=== PATIENT | female | born 1990 | race Caucasian/White ===

== ENCOUNTER 2017-02-08 06:03 | Inpatient (IN) | payer BC, OTHER ==
[2017-02-06 10:46] LABS: ABSOLUTE EOSINOPHILS # (AUTO) 0.2 10^3/uL (0.0-0.6); ABSOLUTE LYMPHOCYTES (AUTO) 1.6 10^3/uL (0.5-4.7); ABSOLUTE MONOCYTES (AUTO) 0.6 10^3/uL (0.1-1.4); ABSOLUTE NEUT (AUTO) 9.3 10^3/uL (1.7-8.2); BASOPHILS % (AUTO) 0.2 % (0-2); EOSINOPHILS % (AUTO) 1.7 % (0-6); HEMATOCRIT 30.4 % (36.0-47.0); HEMOGLOBIN 9.5 g/dL (12.0-15.5); HGB HCT DIFFERENCE -1.9; LYMPHOCYTES % (AUTO) 13.9 % (13-45); MEAN CORPUSCULAR HEMOGLOBIN 22.2 pg (27.0-33.4); MEAN CORPUSCULAR HGB CONC 31.1 g/dL (32.0-36.0); MEAN CORPUSCULAR VOLUME 71 fl (80-97); MONOCYTES % (AUTO) 4.9 % (3-13); RED BLOOD COUNT 4.25 10^6/uL (3.72-5.28); RED CELL DISTRIBUTION WIDTH 17.5 % (11.5-14.0); SEGMENTED NEUTROPHILS % (AUTO) 79.3 % (42-78); WHITE BLOOD COUNT 11.8 10^3/uL (4.0-10.5)
[2017-02-06 10:48] LABS: APPEARANCE,URINE CLEAR; BILIRUBIN,URINE NEGATIVE (NEGATIVE); GLUCOSE, URINE NEGATIVE (NEGATIVE); KETONES,URINE NEGATIVE (NEGATIVE); LEUKOCYTE ESTERASE,URINE NEGATIVE (NEGATIVE); NITRITE,URINE NEGATIVE (NEGATIVE); PROTEIN,URINE NEGATIVE (NEGATIVE); URINE SPECIFIC GRAVITY 1.013
[2017-02-06 11:19] LABS: URINE BARBITURATES SCREEN NEGATIVE; URINE METHADONE SCREEN NEGATIVE; URINE OPIATES LOW NEGATIVE; URINE PHENCYCLIDINE SCREEN NEGATIVE
[~2017-02-08 06:03] MED LIST: CEFAZOLIN 1 GM/D5W RTU 1 GM/50 ML RTUPB IV PRN; LIDOCAINE 0.5% INJ-PF (5 MG/ML) 50 ML SDV INJ PRN; RINGERS SOLUTION,LACTATED 1,000 ML IV PRN
[2017-02-08] MEDS: RINGERS SOLUTION,LACTATED 1,000 ML IV PRN ×2 (07:14→22:09)
[2017-02-08] MEDS ORDERED: MORPHINE SULFATE INJ PF 10 MG/10 ML SDV ONE (08:59)
[2017-02-08] MEDS ORDERED: OXYTOCIN/NORMAL SALINE 20 UNIT/1,000 ML RTUINJ ONE ×2 (09:01→12:52)
[2017-02-08] MEDS ORDERED: ACETAMINOPHEN 100 ML IV ONE (09:01)
[2017-02-08] MEDS ORDERED: ONDANSETRON HCL INJ/PF 4 MG/2 ML SDV IV PRN (10:37)
[2017-02-08] MEDS ORDERED: FENTANYL CITRATE INJ/PF 100 MCG/2 ML AMPUL IV PRN (10:37)
[2017-02-08] MEDS ORDERED: MEPERIDINE HCL/PF INJ 25 MG/1 ML DISP.SYRIN IV PRN (10:37)
[2017-02-08] MEDS ORDERED: FENTANYL CITRATE INJ/PF 100 MCG/2 ML AMPUL ONE (10:54)
[2017-02-08] MEDS ORDERED: ONDANSETRON HCL INJ/PF 4 MG/2 ML SDV ONE ×2 (10:55→12:14)
--- NOTE | 2017-02-08 11:12 | OPERATIVE REPORT E ---
Operative Report NAME: ESTELLA MONET : 1990 AGE: 26Y DATE OF SURGERY: 02/08/2017 ROOM: 227 PREOPERATIVE DIAGNOSES: 1. IUP at 39 weeks. 2. Breech presentation. 3. Undesired fertility. POSTOPERATIVE DIAGNOSES: 1. IUP at 39 weeks. 2. Breech presentation. 3. Undesired fertility. PROCEDURE: Low-transverse hysterotomy section with Violet tubal ligation. SURGEON: JANA RAMIREZ M.D. ANESTHESIA: Dr. *------* with a spinal. FINDINGS: Male infant, suma breech, Apgars of 9 and 9, weight 8 pounds 11 ounces. COMPLICATIONS: None. ESTIMATED BLOOD LOSS: 600 mL. PROCEDURE IN DETAIL: Patient was taken to the operating room, prepared and draped in a normal sterile fashion in a supine position with a leftward tilt. A transverse skin incision was made with a scalpel and carried through to the underlying layer of fascia with the same scalpel. The fascia was incised in the midline and extended laterally with Lucero scissors and fascia was dissected bluntly from the rectus muscle and the rectus muscles were divided. The peritoneal cavity was entered bluntly with good visualization of the bladder and the uterus. A bladder blade was inserted. The hysterotomy was nicked with a scalpel and extended laterally with surgeon finger fracture. The infant was then delivered atraumatically using the appropriate maneuvers. Nose and mouth were suctioned with a suction bulb, the cord was clamped and cut, and the infant was handed off to awaiting pediatricians. The cord blood was collected and the placenta was removed manually. The uterus was exteriorized and cleared of clots and debris. The hysterotomy was closed with 0 Monocryl in a running, locked fashion. A second layer of the same suture was used for imbrication to ensure hemostasis. Attention was then turned to the fallopian tubes where the right fallopian tube was grasped with a [place] and the mesosalpinx was divided. A 3-cm section of the fallopian tube was then tied off with 2 pieces of 2-0 chromic and the intermediate section was removed with Metzenbaums. Hemostasis was obtained with Bovie cautery. This was repeated on the left fallopian tube without difficulty. The uterus was then returned to the abdomen and the pedicles reinspected and found to be hemostatic. Hysterotomy was also found to be hemostatic. The rectus muscle and peritoneum were then reapproximated with 2-0 chromic using a mattress stitch. The fascia was closed with 0 Vicryl, the subcutaneous layer was closed with plain catgut, and the skin was closed with 4-0 Vicryl. The patient tolerated the procedure well. Sponge, lap and needle counts were correct x2. The patient was taken to recovery in stable condition. DICTATING PHYSICIAN: JANA RAMIREZ M.D. [id number] PHY#: [id number] ID: [id number] JOB#: [id number] ACCT: [id number] cc:JANA RAMIREZ M.D. >
[2017-02-08] MEDS ORDERED: PHENYLEPHRINE HCL INJ/PF 10 MG/1 ML SDV ONE (12:14)
[2017-02-08] MEDS ORDERED: ACETAMINOPHEN 100 ML IV PRN (12:35)
[2017-02-08] MEDS ORDERED: MEASLES,MUMPS&RUBELLA VACC/PF 0.5 ML VIAL SUBCUT PRN (12:35)
[2017-02-08] MEDS ORDERED: MORPHINE SULFATE 10 MG/ML INJ IV PRN (12:35)
[2017-02-08] MEDS ORDERED: PROMETHAZINE HCL INJ 25 MG/1 ML VIAL IV PRN (12:35)
[2017-02-08] MEDS ORDERED: OXYTOCIN/NORMAL SALINE 20 UNIT/1,000 ML RTUINJ IV PRN (12:35)
[2017-02-08] MEDS ORDERED: SIMETHICONE 80 MG TAB.CHEW PO PRN (12:35)
[2017-02-08] MEDS ORDERED: ACETAMINOPHEN 325 MG TABLET PO PRN (12:35)
[2017-02-08] MEDS ORDERED: DIPH/PERTUSS(ACELL)/TETANUS VAC/PF 0.5 ML SYR (>=10YO) IM PRN (12:35)
[2017-02-08] MEDS: KETOROLAC TROMETHAMINE INJ/PF 30 MG/1 ML SDV IV SCH ×2 (13:45→22:09)
[2017-02-08] MEDS: OXYCODONE-ACETAMINOPHEN 5-325 MG TABLET PO PRN (13:45)
[2017-02-08] MEDS ORDERED: IBUPROFEN 800 MG TABLET PO SCH (18:00)
[2017-02-08] MEDS: DOCUSATE SODIUM 100 MG CAPSULE PO SCH (18:36)
[2017-02-09] MEDS: OXYCODONE-ACETAMINOPHEN 5-325 MG TABLET PO PRN ×2 (03:24→23:11)
[2017-02-09 06:22] LABS: HEMATOCRIT 25.5 % (36.0-47.0); HGB HCT DIFFERENCE -1.5; MEAN CORPUSCULAR HEMOGLOBIN 22.1 pg (27.0-33.4); MEAN CORPUSCULAR HGB CONC 31.4 g/dL (32.0-36.0); MEAN CORPUSCULAR VOLUME 70 fl (80-97); RED BLOOD COUNT 3.62 10^6/uL (3.72-5.28); RED CELL DISTRIBUTION WIDTH 17.3 % (11.5-14.0); WHITE BLOOD COUNT 11.7 10^3/uL (4.0-10.5)
[2017-02-09] MEDS: KETOROLAC TROMETHAMINE INJ/PF 30 MG/1 ML SDV IV SCH (06:34)
[2017-02-09] MEDS: PRENATAL VITAMIN W-O CA NO5/FE FUMARATE/FA CAPSULE PO SCH (09:16)
[2017-02-09] MEDS: DOCUSATE SODIUM 100 MG CAPSULE PO SCH ×2 (09:16→17:06)
--- NOTE | 2017-02-09 09:46 | PDOC PROGRESS REPORT ---
Subjective-OB Subjective: Post Delivery Day: 26 year old. Denies any needs at this time Doing well, no c/o, holding baby, pain under control, voiding, eating well, breast feeding Physical Exam (OB) Vital Signs: Temp Pulse Resp BP Pulse Ox 98.1 F 71 16 106/62 97 02/09/17 07:53 02/09/17 07:53 02/09/17 07:53 02/09/17 07:53 02/09/17 07:53 Intake & Output 02/08/17 02/09/17 02/10/17 06:59 06:59 06:59 Intake Total 650 Output Total 850 Balance -200 Weight 97.069 kg - Dressing Removed: No Incision: Dressing, Draining - Lochia Lochia Amount: Scant < 10 ml Lochia Color: Rubra/Red - Abdomen Description: Tender, Soft, Round Hernia Present: No Fundal Description: Firm, Midline Fundal Height: u/u - u/2 Objective-Diagnostic Laboratory: 02/09/17 06:06 02/09/17 06:06 WBC 11.7 H RBC 3.62 L Hgb 8.0 L Hct 25.5 L MCV 70 L MCH 22.1 L MCHC 31.4 L RDW 17.3 H Plt Count 250 Assessment and Plan(PN) - Assessment and Plan (1) Delivery by section of full-term infant Is this a current diagnosis for this admission?: Yes - Time Spent with Patient Time with patient: Less than 15 minutes Medications reviewed and adjusted accordingly: Yes - Disposition Anticipated Discharge: Home Within: within 24 hours
[2017-02-09] MEDS: IBUPROFEN 800 MG TABLET PO SCH ×3 (11:20→23:09)
[2017-02-10] MEDS: IBUPROFEN 800 MG TABLET PO SCH ×2 (06:30→11:03)
[2017-02-10] MEDS: PRENATAL VITAMIN W-O CA NO5/FE FUMARATE/FA CAPSULE PO SCH (09:28)
[2017-02-10] MEDS: DOCUSATE SODIUM 100 MG CAPSULE PO SCH (09:28)
[2017-02-10 09:53] VITALS: BP 111/62
--- NOTE | 2017-02-10 10:09 | PDOC DISCHARGE SUMMARY ---
Final Diagnosis Discharge Date: 02/10/17 Discharge Data - Discharge Medication Home Medications: Pv W-O Vit A/Iron,Carbonyl/FA [Prenatabs Obn Tablet] 1 each PO DAILY 05/09/11 Docusate Sodium [Colace 100 mg Capsule] 100 mg PO BID #60 capsule 02/10/17 Ferrous Sulfate 325 mg PO BID #60 tablet 02/10/17 Ibuprofen [Motrin 800 mg Tablet] 800 mg PO Q6 #60 tablet 02/10/17 Oxycodone HCl/Acetaminophen [Percocet 5-325 mg Tablet] 2 tab PO Q4HP PRN #30 tablet 02/10/17 Gestational Age: 39 Reason(s) for Admission: Ceasarean Section-Primary - breech Procedures: NST Intrapartum Procedure(s): : Low Cervical, Transverse - Data Baby 1 Male at 1 minute: 8 at 5 minutes: 9 Weight: 3955 kg Home with Mother: Yes Complications: No - Diagnosis Test Laboratory: Temp Pulse Resp BP Pulse Ox 98.4 F 75 16 111/62 100 02/10/17 09:45 02/10/17 09:45 02/10/17 09:45 02/10/17 09:45 02/10/17 09:45 02/06/17 02/06/17 02/09/17 09:59 10:10 06:06 RBC 4.25 3.62 L Hgb 9.5 L 8.0 L Hct 30.4 L 25.5 L Urine Opiates Screen NEGATIVE - Discharge information/Instructions Discharge Activity: Activity As Tolerated, No Driving, No Lifting Over 10 Pounds , Pelvic Rest, Slowly Increase Activity, No tub bath Discharge Diet: Regular Disposition: HOME, SELF-CARE Follow up with: [facility] in: 1, Weeks
[2017-02-10] MEDS: OXYCODONE-ACETAMINOPHEN 5-325 MG TABLET PO PRN (11:20)
== END 2017-02-10 12:35 | disposition home or self-care (01) | DRG 766 ==
LOC: 2S 06:03 → EDSTATUS 11:45
PROVIDERS: ADMIT Obstetrics & Gynecology; ATTEND Obstetrics & Gynecology
PROC: 0UB70ZZ Excision of Bilateral Fallopian Tubes, Open Approach (ICD-10-PCS; 2017-02-08)
PROC: 4A1HXCZ Monitoring of Products of Conception, Cardiac Rate, External Approach (ICD-10-PCS; 2017-02-08)
PROC: 10D00Z1 Extraction of Products of Conception, Low, Open Approach (ICD-10-PCS; principal; 2017-02-08 08:45)
DX: O32.1XX0 Maternal care for breech presentation, not applicable or unspecified (principal); Z30.2 Encounter for sterilization; Z3A.39 39 weeks gestation of pregnancy; Z37.0 Single live birth
CPT/HCPCS: 1961; 36415; 59025; 80307; 81001; 85025; 85027; 86850; 86900; 86901; 88302; 94799; J0131; J1885; J2274; J2370; J2405; J2590; J3010; J7120